=== PATIENT | female | born 1930 | race Caucasian/White ===

== ENCOUNTER 2017-08-29 06:13 | Inpatient (IN) | payer OTHER ==
[~2017-08-29] VITALS: Ht 154.9 cm; Wt 58.6 kg
[~2017-08-29 06:13] MED LIST: AMLO5TAB4 PO; AMOX1TAB61 PO; ASPI-515 PO; ASPI-621 PO; ASPI325T17 PO; ASPI500T10 PO; CEPH-368 PO; CIPR500T3 PO; DOCU-131 PO; DOCU-180 PO; DOXY100T PO; ENOX30SY4 SQ; FLUC200T PO; FLUR15CA3 PO; FLUR30CA3 PO; FURO20TA3 PO; FURO40TA6 PO; GABA300C10 PO; HYDR-3237 PO; HYDR-3343 PO; LISI-170 PO; LORA-446 PO; MAGN400T26 PO; METO50TA82 PO; NAPR220C PO; NAPR250T6 PO; NIAC500T PO; OXYC5TAB3 PO; POLY17PO5 PO; PRAV10TA2 PO; PRAV20TA PO; PRAV40TA2 PO; PRED10TA PO; SIMV10TA PO; SIMV10TA3 PO; SPIR25TA3 PO; TOLT2TAB16 PO; TRAM50TA2 PO; ZONI50CA2 PO
[2017-08-29] MEDS ORDERED: SODIUM CHLORIDE FLUSH 10ML SYR IVF ONE (06:30)
[2017-08-29 06:42] LABS: BASOPHILS # (AUTO) 0.06 x10^3/uL (0-0.1); BASOPHILS % (AUTO) 1 % (0-1); EOSINOPHILS # (AUTO) 0.46 x10^3/uL (0-0.4); EOSINOPHILS % (AUTO) 5 % (1-7); LYMPHOCYTES % (AUTO) 19 % (22-44); MD NO; MEAN CORPUSCULAR HEMOGLOBIN 30.9 pg (27.0-34.8); MEAN CORPUSCULAR HGB CONC 33.2 g/dL (32.4-35.8); MEAN PLATELET VOLUME 8.3 fL (7.4-10.4); MONOCYTES # (AUTO) 0.83 x10^3/uL (0.2-0.8); MONOCYTES % (AUTO) 8 % (2-9); NEUTROPHILS # (AUTO) 6.86 x10^3/uL (1.8-6.8); NEUTROPHILS % (AUTO) 68 % (42-75); PLATELET COUNT 302 x10^3/uL (130-400); RED BLOOD COUNT 4.89 x10^6/uL (3.82-5.3); RED CELL DISTRIBUTION WIDTH 14.5 % (9.6-15.2)
[2017-08-29 06:53] LABS: PROTHROMBIN TIME 10.3 Seconds (9.6-11.5)
[2017-08-29 06:54] LABS: ALANINE AMINOTRANSFERASE 16 U/L (12-78); ALBUMIN 3.7 g/dL (3.4-5.0); ANION GAP 9 mmol/L (5-15); CALCIUM 10.3 mg/dL (8.5-10.1); CHLORIDE 106 mmol/L (98-107); CREATININE 1.51 mg/dL (0.55-1.02)
[2017-08-29 06:59] LABS: ALKALINE PHOSPHATASE 84 U/L (45-117); BILIRUBIN,TOTAL 0.3 mg/dL (0.2-1.0); TOTAL PROTEIN 7.4 g/dL (6.4-8.2); TROPONIN I < 0.015 ng/mL (0.000-0.045)
[2017-08-29 07:56] LABS: MICROSCOPIC INDICATED
[2017-08-29 07:58] LABS: CULTURE INDICATED? YES
[2017-08-29] MEDS ORDERED: SODIUM CHLORIDE 0.9% 1,000 ML IV ONE (08:23)
[2017-08-29] MEDS ORDERED: SODIUM CHLORIDE FLUSH 10ML SYR IVF PRN (08:30)
[2017-08-29] MEDS ORDERED: CEFTRIAXONE PMX 1GM/50ML 50 ML IVPB ONE (08:30)
[2017-08-29] MEDS ORDERED: POTASSIUM CHLORIDE 20 MEQ TAB.ER.PRT PO ONE (09:30)
[2017-08-29] MEDS ORDERED: ACETAMINOPHEN 325 MG TABLET PO PRN (09:30)
[2017-08-29] MEDS ORDERED: tolterodine PO (09:59)
[2017-08-29] MEDS ORDERED: HYDR-3240 PO (09:59)
[2017-08-29] MEDS ORDERED: furosemide PO (09:59)
[2017-08-29] MEDS ORDERED: lorazepam PO (10:02)
[2017-08-29] MEDS ORDERED: morphine PO (10:03)
[2017-08-29 10:15] LABS: FREE T4 (FREE THYROXINE) 1.28 ng/dL (0.76-1.46); THYROID STIMULATING HORMONE 7.33 mIU/L (0.358-3.740)
[2017-08-29] MEDS ORDERED: CEFTRIAXONE PMX 1GM/50ML 50 ML ONE (10:17)
[2017-08-29] MEDS ORDERED: HEPARIN 5,000 UNITS/ML, 1ML ONE (10:17)
[2017-08-29] MEDS ORDERED: POTASSIUM CHLORIDE 20 MEQ TAB.ER.PRT ONE (10:18)
[2017-08-29] MEDS: HEPARIN 5,000 UNITS/ML, 1ML SQ SCH ×2 (10:22→17:38)
[2017-08-29] MEDS ORDERED: LORazepam 2 MG/ML, 1ML IVPush PRN (12:30)
[2017-08-29 13:15] VITALS: BP 183/92
[2017-08-29] MEDS ORDERED: LEVETIRACETAM 500 MG in SODIUM CHLORIDE 0.9% 100 ML IV SCH (14:00)
[2017-08-29] MEDS ORDERED: NITR100C57 PO (14:47)
[2017-08-29] MEDS ORDERED: LEVO500T47 PO (14:47)
[2017-08-29] MEDS: SODIUM CHLORIDE 0.9% 1,000 ML IV SCH ×2 (15:07→23:11)
[2017-08-29 20:00] VITALS: BP 183/80
[2017-08-29] MEDS: ZONISAMIDE 50 MG CAPSULE PO SCH (22:11)
[2017-08-30 02:00] VITALS: BP 180/69
[2017-08-30] MEDS: HEPARIN 5,000 UNITS/ML, 1ML SQ SCH ×3 (04:06→17:32)
[2017-08-30 04:59] LABS: BASOPHILS # (AUTO) 0.03 x10^3/uL (0-0.1); BASOPHILS % (AUTO) 0 % (0-1); EOSINOPHILS # (AUTO) 0.11 x10^3/uL (0-0.4); EOSINOPHILS % (AUTO) 1 % (1-7); LYMPHOCYTES # (AUTO) 1.05 x10^3/uL (1-3.4); LYMPHOCYTES % (AUTO) 13 % (22-44); MD NO; MEAN CORPUSCULAR HEMOGLOBIN 30.8 pg (27.0-34.8); MEAN CORPUSCULAR HGB CONC 33.2 g/dL (32.4-35.8); MEAN CORPUSCULAR VOLUME 92.6 fL (80-100); MONOCYTES # (AUTO) 0.81 x10^3/uL (0.2-0.8); MONOCYTES % (AUTO) 10 % (2-9); NEUTROPHILS # (AUTO) 6.36 x10^3/uL (1.8-6.8); NEUTROPHILS % (AUTO) 76 % (42-75); PLATELET COUNT 196 x10^3/uL (130-400); RED BLOOD COUNT 4.29 x10^6/uL (3.82-5.3); RED CELL DISTRIBUTION WIDTH 14.9 % (9.6-15.2)
[2017-08-30 05:03] LABS: ALANINE AMINOTRANSFERASE 13 U/L (12-78); ALBUMIN 3.1 g/dL (3.4-5.0); ANION GAP 10 mmol/L (5-15); CALCIUM 8.7 mg/dL (8.5-10.1); CHLORIDE 115 mmol/L (98-107)
[2017-08-30 05:06] LABS: ALKALINE PHOSPHATASE 66 U/L (45-117); BILIRUBIN,TOTAL 0.4 mg/dL (0.2-1.0); CREATININE 1.04 mg/dL (0.55-1.02); TOTAL PROTEIN 6.4 g/dL (6.4-8.2)
[2017-08-30 06:38] VITALS: BP_SYST 197; BP_SYST 203; BP_DIAS 68; BP_DIAS 85
[2017-08-30] MEDS: SODIUM CHLORIDE 0.9% 1,000 ML IV SCH ×2 (06:38→18:36)
[2017-08-30] MEDS: LABETALOL 5MG/ML, 20ML IVPush PRN (06:45)
[2017-08-30] MEDS ORDERED: ERGOCALCIFEROL 50,000 UNIT CAPSULE PO SCH (07:00)
[2017-08-30] MEDS ORDERED: HYDROcodone/APAP 5/325 TABLET PO PRN (07:00)
[2017-08-30] MEDS ORDERED: DOCUSATE 100 MG CAPSULE PO PRN (07:00)
[2017-08-30] MEDS ORDERED: ONDANSETRON 2MG/ML, 2ML IVPush PRN (10:00)
[2017-08-30] MEDS ORDERED: ONDANSETRON ODT 4 MG PO PRN (10:00)
[2017-08-30] MEDS: ZONISAMIDE 50 MG CAPSULE PO SCH ×2 (10:22→21:16)
[2017-08-30] MEDS: AMLODIPINE 5 MG TABLET PO SCH (10:23)
[2017-08-30 10:28] VITALS: BP 179/73
[2017-08-30 10:29] LABS: AMPHETAMINE SCREEN, URINE Negative (Negative); BARBITURATE SCREEN, URINE Negative (Negative); BENZODIAZEPINE SCREEN, URINE Negative (Negative); CANNABINOID SCREEN, URINE Negative (Negative); COCAINE SCREEN, URINE Negative (Negative); METHADONE SCREEN, URINE Negative (Negative); OPIATE SCREEN, URINE Positive (Negative)
[2017-08-30 12:10] VITALS: BP 156/68
[2017-08-30] MEDS ORDERED: hydrALAzine 20 MG/ML, 1ML IV PRN (12:30)
[2017-08-30] MEDS ORDERED: GADOBUTROL 7.5 MMOL/7.5 ML PFS ONE (14:12)
[2017-08-30] MEDS: LEVOFLOXACIN 500 MG TABLET PO SCH (15:53)
[2017-08-30 20:15] VITALS: BP 175/94
[2017-08-30] MEDS ORDERED: LORazepam 1MG TABLET PO SCH (21:00)
[2017-08-30] MEDS ORDERED: TOLTERODINE 1 MG PO SCH (21:00)
[2017-08-30] MEDS ORDERED: TOLTERODINE 2MG TABLET PO SCH (21:00)
[2017-08-31 03:13] VITALS: BP 187/76
[2017-08-31] MEDS: LABETALOL 5MG/ML, 20ML IVPush PRN (03:29)
[2017-08-31] MEDS: HEPARIN 5,000 UNITS/ML, 1ML SQ SCH ×2 (03:30→08:57)
[2017-08-31 03:54] VITALS: BP 158/76
[2017-08-31 05:19] LABS: BASOPHILS # (AUTO) 0.02 x10^3/uL (0-0.1); BASOPHILS % (AUTO) 0 % (0-1); EOSINOPHILS # (AUTO) 0.11 x10^3/uL (0-0.4); EOSINOPHILS % (AUTO) 1 % (1-7); LYMPHOCYTES # (AUTO) 0.99 x10^3/uL (1-3.4); LYMPHOCYTES % (AUTO) 10 % (22-44); MD NO; MEAN CORPUSCULAR HEMOGLOBIN 30.9 pg (27.0-34.8); MEAN CORPUSCULAR HGB CONC 33.2 g/dL (32.4-35.8); MEAN CORPUSCULAR VOLUME 93.1 fL (80-100); MEAN PLATELET VOLUME 8.8 fL (7.4-10.4); MONOCYTES # (AUTO) 0.77 x10^3/uL (0.2-0.8); MONOCYTES % (AUTO) 8 % (2-9); NEUTROPHILS # (AUTO) 8.27 x10^3/uL (1.8-6.8); NEUTROPHILS % (AUTO) 82 % (42-75); PLATELET COUNT 219 x10^3/uL (130-400); RED BLOOD COUNT 4.12 x10^6/uL (3.82-5.3); RED CELL DISTRIBUTION WIDTH 14.4 % (9.6-15.2)
[2017-08-31 05:21] LABS: CHLORIDE 116 mmol/L (98-107)
[2017-08-31 05:28] LABS: ALANINE AMINOTRANSFERASE 14 U/L (12-78); ALBUMIN 3.2 g/dL (3.4-5.0); ALKALINE PHOSPHATASE 65 U/L (45-117); ANION GAP 8 mmol/L (5-15); BILIRUBIN,TOTAL 0.4 mg/dL (0.2-1.0); CALCIUM 8.4 mg/dL (8.5-10.1); CREATININE 1.02 mg/dL (0.55-1.02); TOTAL PROTEIN 6.6 g/dL (6.4-8.2)
[2017-08-31 08:00] VITALS: BP 181/71
[2017-08-31] MEDS: SODIUM CHLORIDE 0.9% 1,000 ML IV SCH (08:56)
[2017-08-31] MEDS: ZONISAMIDE 50 MG CAPSULE PO SCH (08:56)
[2017-08-31] MEDS: AMLODIPINE 5 MG TABLET PO SCH (08:57)
[2017-08-31] MEDS: LEVOFLOXACIN 500 MG TABLET PO SCH (12:44)
[2017-08-31] MEDS ORDERED: ZONI50CA2 PO (13:43)
[2017-08-31] MEDS ORDERED: AMLO5TAB2 PO (13:43)
[2017-08-31 14:00] VITALS: BP 172/79
== END 2017-08-31 18:22 | disposition home or self-care (01) | DRG 100 ==
LOC: ED 08:22 → EDIP 08:23 → ED 08:46 → 4EST 12:53
PROVIDERS: ADMIT Internal Medicine; ATTEND Internal Medicine
PROC: 0T9B70Z Drainage of Bladder with Drainage Device, Via Natural or Artificial Opening (ICD-10-PCS; principal; 2017-08-29)
DX: G40.909 Epilepsy, unspecified, not intractable, without status epilepticus (principal); N17.0 Acute kidney failure with tubular necrosis; E86.0 Dehydration; N30.90 Cystitis, unspecified without hematuria; F03.90 Unspecified dementia, unspecified severity, without behavioral disturbance, psychotic disturbance, mood disturbance, and anxiety; Z88.2 Allergy status to sulfonamides; E55.9 Vitamin D deficiency, unspecified; E78.5 Hyperlipidemia, unspecified; E87.6 Hypokalemia; I10 Essential (primary) hypertension; Z66 Do not resuscitate; I16.0 Hypertensive urgency; Z80.42 Family history of malignant neoplasm of prostate; Z79.2 Long term (current) use of antibiotics; Z85.3 Personal history of malignant neoplasm of breast; Z86.011 Personal history of benign neoplasm of the brain; Z87.891 Personal history of nicotine dependence; Z90.710 Acquired absence of both cervix and uterus
CPT/HCPCS: 36415; 70450; 70553; 71045; 80053; 80307; 81001; 82140; 82306; 82397; 82550; 83735; 83970; 84100; 84439; 84443; 84484; 85025; 85610; 85730; 87040; 87086; 87106; 93005; 95819; 96365; 96366; A9585; J0696; J1644; Q0162; J2060; J7030

== ENCOUNTER 2018-05-20 19:19 | Inpatient (IN) | payer OTHER ==
[~2018-05-20] VITALS: Ht 149.9 cm; Wt 54.3 kg
[~2018-05-20 19:19] MED LIST changes: +AMLO-150 PO; -ASPI-621 PO; +ASPI81TA45 PO; +HYDR-3240 PO; +LEVO500T47 PO; +NITR100C57 PO; -SPIR25TA3 PO; +SPIR25TA5 PO; +furosemide PO; +lorazepam PO; +morphine PO; +tolterodine PO
--- NOTE | 2018-05-20 19:21 | NUR ---
DR. BRUNSON AT BEDSIDE EVALUATING PT.
--- NOTE | 2018-05-20 19:27 | NUR ---
bib remsa for sz per caregiver, pt non responsive for ems upon arrival, gcs currently 11. pt son to bs and giving history, pt waking up and looking at this rn and not following commands.
--- NOTE | 2018-05-20 19:29 | NUR ---
pt also came in with polst form and hospice paperwork.
[2018-05-20] MEDS ORDERED: SODIUM CHLORIDE FLUSH 10ML SYR IVF ONE (19:30)
[2018-05-20 19:53] LABS: BASOPHILS # (AUTO) 0.03 x10^3/uL (0-0.1); BASOPHILS % (AUTO) 0 % (0-1); EOSINOPHILS # (AUTO) 0.43 x10^3/uL (0-0.4); EOSINOPHILS % (AUTO) 4 % (1-7); LYMPHOCYTES # (AUTO) 0.98 x10^3/uL (1-3.4); LYMPHOCYTES % (AUTO) 9 % (22-44); MD NO; MEAN CORPUSCULAR HEMOGLOBIN 31.1 pg (27.0-34.8); MEAN CORPUSCULAR HGB CONC 33.6 g/dL (32.4-35.8); MEAN CORPUSCULAR VOLUME 92.3 fL (80-100); MEAN PLATELET VOLUME 8.2 fL (7.4-10.4); MONOCYTES # (AUTO) 0.72 x10^3/uL (0.2-0.8); MONOCYTES % (AUTO) 7 % (2-9); NEUTROPHILS # (AUTO) 8.99 x10^3/uL (1.8-6.8); NEUTROPHILS % (AUTO) 81 % (42-75); PLATELET COUNT 331 x10^3/uL (130-400); RED BLOOD COUNT 4.12 x10^6/uL (3.82-5.3); RED CELL DISTRIBUTION WIDTH 13.7 % (9.6-15.2)
[2018-05-20 20:01] LABS: ALANINE AMINOTRANSFERASE 15 U/L (12-78); ALBUMIN 3.5 g/dL (3.4-5.0); ANION GAP 12 mmol/L (5-15); CALCIUM 9.6 mg/dL (8.5-10.1); CHLORIDE 106 mmol/L (98-107); CREATININE 2.04 mg/dL (0.55-1.02)
[2018-05-20 20:03] LABS: ALKALINE PHOSPHATASE 84 U/L (45-117); BILIRUBIN,TOTAL 0.2 mg/dL (0.2-1.0); TOTAL PROTEIN 6.7 g/dL (6.4-8.2)
--- NOTE | 2018-05-20 20:42 | NUR ---
STRAIGHT CATH DONE. SENT TO LAB. PT ALERT OREINTED TO PLACE AND SELF. NOT SITUATION. PT APPEARS DROWSY, SLEEPING A LOT BUT EASILY AROUSED. SON REMAINS AT BEDSIDE. WILL CONTINUE TO MONITOR. PT TO BE ADMITTED
[2018-05-20] MEDS ORDERED: SODIUM CHLORIDE 0.9% 1,000ML IVBOLUS ONE (21:00)
[2018-05-20 21:01] LABS: CULTURE INDICATED? YES; MICROSCOPIC INDICATED
--- NOTE | 2018-05-20 21:11 | NUR ---
DR. BRUNSON AT BEDSIDE UPDATING PT AND FAMILY ON LAB RESULTS AND PLAN OF CARE
[2018-05-20] MEDS ORDERED: SODIUM CHLORIDE 0.9% 1,000 ML IV ONE (21:20)
[2018-05-20] MEDS ORDERED: CEFTRIAXONE PMX 1GM/50ML 50 ML ONE (21:24)
[2018-05-20] MEDS ORDERED: SODIUM CHLORIDE FLUSH 10ML SYR IVF PRN ×2 (21:30)
[2018-05-20] MEDS ORDERED: CEFTRIAXONE PMX 1GM/50ML 50 ML IV ONE (21:30)
--- NOTE | 2018-05-20 21:42 | NUR ---
PT MEDICATED PER EMAR. 5 RIGHTS ADDRESSED. DENIES ANY NEEDS AT THIS TIME. PT MORE AWAKE AND ALERT. ANSWERING QUESTIONS APPROPRIATELY, ABLE TO FOLLOW COMMANDS.
--- NOTE | 2018-05-20 21:46 | NUR ---
HOSPITALIST AT BEDSIDE EVALUATING PT
--- NOTE | 2018-05-20 21:55 | NUR ---
REPORT TO MORENO BERNARD
[2018-05-20] MEDS ORDERED: POLYETHYLENE GLYCOL 17 GM PACKET PO PRN (22:00)
[2018-05-20] MEDS: ZONISAMIDE 50 MG CAPSULE PO SCH (22:00)
[2018-05-20] MEDS ORDERED: BISACODYL 10 MG SUPP PR PRN (22:00)
[2018-05-20] MEDS ORDERED: ONDANSETRON ODT 4 MG PO PRN (22:00)
--- NOTE | 2018-05-20 22:28 | NUR ---
REPORT TO MORENO PAZ
[2018-05-21] MEDS: SODIUM CHLORIDE 0.9% 1,000 ML IV SCH ×3 (00:15→18:21)
[2018-05-21] MEDS ORDERED: LEVETIRACETAM 1,000 MG in SODIUM CHLORIDE 0.9% 100 ML IV ONE (00:30)
[2018-05-21 00:55] LABS: PROTHROMBIN TIME 10.6 Seconds (9.6-11.5)
[2018-05-21] MEDS: CEFTRIAXONE PMX 1GM/50ML 50 ML IV SCH (01:06)
[2018-05-21] MEDS: FLUCONAZOLE 100MG/50ML 100 MG in BAG 1 EACH IV SCH (01:06)
[2018-05-21 03:16] VITALS: BP_SYST 168; BP_SYST 172; BP_DIAS 74; BP_DIAS 79
[2018-05-21 04:16] LABS: MEAN CORPUSCULAR HEMOGLOBIN 30.6 pg (27.0-34.8); MEAN CORPUSCULAR HGB CONC 33.1 g/dL (32.4-35.8); MEAN CORPUSCULAR VOLUME 92.2 fL (80-100); MEAN PLATELET VOLUME 8.1 fL (7.4-10.4); PLATELET COUNT 300 x10^3/uL (130-400); RED CELL DISTRIBUTION WIDTH 13.9 % (9.6-15.2)
[2018-05-21 04:22] LABS: ALBUMIN 3.3 g/dL (3.4-5.0); ANION GAP 7 mmol/L (5-15); CALCIUM 9.4 mg/dL (8.5-10.1); CHLORIDE 108 mmol/L (98-107)
[2018-05-21 04:25] LABS: ALANINE AMINOTRANSFERASE 13 U/L (12-78); ALKALINE PHOSPHATASE 83 U/L (45-117); BILIRUBIN,TOTAL 0.1 mg/dL (0.2-1.0); CREATININE 1.91 mg/dL (0.55-1.02); TOTAL PROTEIN 6.8 g/dL (6.4-8.2)
[2018-05-21 05:39] LABS: CREATININE,URINE RANDOM 59.7 mg/dL
[2018-05-21 06:01] LABS: BASOPHILS # (AUTO) 0.03 x10^3/uL (0-0.1); BASOPHILS % (AUTO) 0 % (0-1); EOSINOPHILS # (AUTO) 0.02 x10^3/uL (0-0.4); EOSINOPHILS % (AUTO) 0 % (1-7); LYMPHOCYTES # (AUTO) 0.64 x10^3/uL (1-3.4); LYMPHOCYTES % (AUTO) 5 % (22-44); MD SCAN; MONOCYTES # (AUTO) 0.68 x10^3/uL (0.2-0.8); MONOCYTES % (AUTO) 5 % (2-9); NEUTROPHILS # (AUTO) 12.51 x10^3/uL (1.8-6.8); NEUTROPHILS % (AUTO) 90 % (42-75)
[2018-05-21 07:53] VITALS: BP 155/59
[2018-05-21] MEDS: ZONISAMIDE 50 MG CAPSULE PO SCH ×2 (10:00→21:02)
[2018-05-21] MEDS: SENNA/DOCUSATE TABLET PO SCH (10:00)
[2018-05-21] MEDS: AMLODIPINE 5 MG TABLET PO SCH (10:00)
[2018-05-21] MEDS ORDERED: LEVETIRACETAM 100 MG/ML, 5ML IVPush SCH (10:00)
[2018-05-21] MEDS ORDERED: LEVETIRACETAM 500 MG in SODIUM CHLORIDE 0.9% 100 ML IV ONE (10:30)
[2018-05-21 13:33] VITALS: BP 179/78
[2018-05-21] MEDS: ACETAMINOPHEN 325 MG TABLET PO PRN ×2 (16:52→21:02)
[2018-05-21] MEDS ORDERED: MORP-52 PO (18:17)
[2018-05-21] MEDS ORDERED: DOCU-131 PO (18:17)
[2018-05-21] MEDS ORDERED: SPIR25TA5 PO (18:17)
[2018-05-21] MEDS: LEVETIRACETAM 500 MG in SODIUM CHLORIDE 0.9% 100 ML IV SCH (18:21)
[2018-05-21] MEDS ORDERED: TOLT1TAB13 PO (18:40)
[2018-05-21] MEDS ORDERED: FURO20TA3 PO (18:40)
[2018-05-21] MEDS ORDERED: LORA1TAB PO (18:40)
[2018-05-21] MEDS ORDERED: MORP30TA PO (18:46)
[2018-05-21 19:25] VITALS: BP 152/68
[2018-05-22] MEDS: CEFTRIAXONE PMX 1GM/50ML 50 ML IV SCH (00:44)
[2018-05-22] MEDS: FLUCONAZOLE 100MG/50ML 100 MG in BAG 1 EACH IV SCH (00:44)
[2018-05-22 00:49] VITALS: BP 182/66
[2018-05-22] MEDS: SODIUM CHLORIDE 0.9% 1,000 ML IV SCH ×2 (03:52→10:08)
[2018-05-22] MEDS: LEVETIRACETAM 500 MG in SODIUM CHLORIDE 0.9% 100 ML IV SCH (05:50)
[2018-05-22 08:43] LABS: BASOPHILS # (AUTO) 0.03 x10^3/uL (0-0.1); BASOPHILS % (AUTO) 0 % (0-1); EOSINOPHILS # (AUTO) 0.38 x10^3/uL (0-0.4); EOSINOPHILS % (AUTO) 3 % (1-7); LYMPHOCYTES # (AUTO) 0.58 x10^3/uL (1-3.4); LYMPHOCYTES % (AUTO) 5 % (22-44); MD NO; MEAN CORPUSCULAR HEMOGLOBIN 30.1 pg (27.0-34.8); MEAN CORPUSCULAR HGB CONC 32.6 g/dL (32.4-35.8); MEAN CORPUSCULAR VOLUME 92.4 fL (80-100); MEAN PLATELET VOLUME 8.1 fL (7.4-10.4); MONOCYTES # (AUTO) 0.66 x10^3/uL (0.2-0.8); MONOCYTES % (AUTO) 6 % (2-9); NEUTROPHILS # (AUTO) 9.59 x10^3/uL (1.8-6.8); NEUTROPHILS % (AUTO) 85 % (42-75); PLATELET COUNT 286 x10^3/uL (130-400); RED BLOOD COUNT 3.68 x10^6/uL (3.82-5.3); RED CELL DISTRIBUTION WIDTH 13.7 % (9.6-15.2)
[2018-05-22 08:48] LABS: ALBUMIN 3.3 g/dL (3.4-5.0); ANION GAP 9 mmol/L (5-15); CALCIUM 8.1 mg/dL (8.5-10.1); CHLORIDE 116 mmol/L (98-107)
[2018-05-22 08:53] LABS: ALANINE AMINOTRANSFERASE 11 U/L (12-78); ALKALINE PHOSPHATASE 75 U/L (45-117); BILIRUBIN,TOTAL 0.2 mg/dL (0.2-1.0); CREATININE 1.26 mg/dL (0.55-1.02); TOTAL PROTEIN 6.3 g/dL (6.4-8.2)
[2018-05-22 09:29] VITALS: BP 173/74
[2018-05-22] MEDS: AMLODIPINE 5 MG TABLET PO SCH (09:50)
[2018-05-22] MEDS: ZONISAMIDE 50 MG CAPSULE PO SCH ×2 (09:50→21:26)
[2018-05-22] MEDS: SENNA/DOCUSATE TABLET PO SCH (09:50)
[2018-05-22 11:39] VITALS: BP 165/83
[2018-05-22] MEDS ORDERED: POTASSIUM PHOSPHATE 44 MEQ in SODIUM CHLORIDE 0.9% 500 ML IV ONE (12:30)
[2018-05-22] MEDS ORDERED: POTASSIUM CHLORIDE 20 MEQ TAB.ER.PRT PO ONE (12:30)
[2018-05-22] MEDS ORDERED: ZIPRASIDONE 20 MG INJ IM PRN (12:30)
[2018-05-22] MEDS ORDERED: POTASSIUM PHOS 4.4 MEQ/ML IV ONE (12:30)
[2018-05-22] MEDS: hydrALAzine 20 MG/ML, 1ML IV PRN (12:50)
[2018-05-22 12:51] VITALS: BP 176/76
[2018-05-22] MEDS: LORazepam 2 MG/ML, 1ML IVPush PRN ×2 (13:24→23:36)
[2018-05-22 13:42] VITALS: BP 151/71
[2018-05-22] MEDS ORDERED: SODIUM BICARBONATE 8.4% 75 MEQ in DEXTROSE 5% 1,000 ML IV SCH (16:00)
[2018-05-22 20:06] VITALS: BP 149/71
[2018-05-23] MEDS: FLUCONAZOLE 100MG/50ML 100 MG in BAG 1 EACH IV SCH (01:02)
[2018-05-23 01:27] VITALS: BP 155/75
[2018-05-23 05:38] LABS: ALBUMIN 3.5 g/dL (3.4-5.0); ANION GAP 9 mmol/L (5-15); CALCIUM 8.7 mg/dL (8.5-10.1); CHLORIDE 116 mmol/L (98-107); CREATININE 1.11 mg/dL (0.55-1.02)
[2018-05-23 07:53] VITALS: BP 173/90
[2018-05-23] MEDS: AMLODIPINE 5 MG TABLET PO SCH (08:03)
[2018-05-23] MEDS: SENNA/DOCUSATE TABLET PO SCH (08:03)
[2018-05-23] MEDS: ZONISAMIDE 50 MG CAPSULE PO SCH (08:03)
[2018-05-23] MEDS: ACETAMINOPHEN 325 MG TABLET PO PRN ×2 (08:06→15:27)
[2018-05-23] MEDS ORDERED: LORazepam 1MG TABLET PO PRN (08:30)
[2018-05-23] MEDS ORDERED: SODIUM BICARBONATE 650 MG TABLET PO SCH (09:00)
[2018-05-23 11:29] VITALS: BP 186/78
[2018-05-23] MEDS ORDERED: SODI650T PO (11:30)
[2018-05-23] MEDS ORDERED: AMLO-150 PO (11:30)
[2018-05-23] MEDS: hydrALAzine 20 MG/ML, 1ML IV PRN (11:39)
[2018-05-23 14:46] VITALS: BP 137/80
[2018-05-23] MEDS ORDERED: LORazepam 1MG TABLET PO SCH (21:00)
== END 2018-05-23 17:40 | disposition home or self-care (01) | DRG 871 ==
LOC: ED 21:30 → 5SO 21:52
PROVIDERS: ADMIT Internal Medicine; ATTEND Hospitalist
PROC: 0T9B70Z Drainage of Bladder with Drainage Device, Via Natural or Artificial Opening (ICD-10-PCS; principal; 2018-05-20)
DX: A41.9 Sepsis, unspecified organism (principal); N17.0 Acute kidney failure with tubular necrosis; E87.1 Hypo-osmolality and hyponatremia; E87.2 Acidosis; N39.0 Urinary tract infection, site not specified; G93.40 Encephalopathy, unspecified; D64.9 Anemia, unspecified; E78.5 Hyperlipidemia, unspecified; E83.39 Other disorders of phosphorus metabolism; E87.6 Hypokalemia; F03.90 Unspecified dementia, unspecified severity, without behavioral disturbance, psychotic disturbance, mood disturbance, and anxiety; G40.909 Epilepsy, unspecified, not intractable, without status epilepticus; I10 Essential (primary) hypertension; K22.2 Esophageal obstruction; R32 Unspecified urinary incontinence; Z66 Do not resuscitate; Z85.3 Personal history of malignant neoplasm of breast; Z86.011 Personal history of benign neoplasm of the brain; Z87.891 Personal history of nicotine dependence; Z90.710 Acquired absence of both cervix and uterus; Z92.21 Personal history of antineoplastic chemotherapy
CPT/HCPCS: 36415; 70450; 71045; 80048; 80053; 81001; 82040; 82436; 82570; 83605; 83735; 84100; 84133; 84300; 85025; 85610; 85730; 87086; 87106; 93005; 99285; G0378; J0696; J1953; J7070; Q0162; J0360; J1450; J2060; J7030; J7040